=== PATIENT | male | born 1975 | race Caucasian/White ===

== ENCOUNTER 2016-10-10 19:36 | Emergency (ER) | payer OTHER ==
[~2016-10-10] VITALS: Ht 177.8 cm; Wt 118.0 kg
[~2016-10-10 19:36] MED LIST: BND25X PO; TRAM-10 PO
[2016-10-10 19:39] VITALS: TEMP 36.6; Ht 177.8 cm; Wt 118.0 kg
[2016-10-10] MEDS ORDERED: IBUP-103 PO (19:48)
[2016-10-10] MEDS ORDERED: ACET-1256 PO (19:48)
--- NOTE | 2016-10-10 20:18 | DIAGNOSTIC IMAGING REPORT ---
LEFT FOOT MIN 3 VIEWS ROUTINE CLINICAL HISTORY: Left foot pain following fall. COMPARISON: None FINDINGS: Alignment of the tarsometatarsal joints is anatomic. No acute fracture is identified on this exam. Dorsal soft tissue swelling is noted on the lateral projection. IMPRESSION: No acute fracture or dislocation of the left foot identified. Electronically signed by: Joni López M.D. 10/10/2016 8:16 PM Dictated Date/Time: 10/10/2016 8:12 PM
[2016-10-10] MEDS ORDERED: ACET-749 PO (20:31)
[2016-10-10 20:41] VITALS: BP 134/86; PULSE 104; O2SAT 95
[2016-10-10] MEDS ORDERED: TYLENOL #3 HOME PACK PO ONE (20:45)
--- NOTE | 2016-10-13 14:25 | EMERGENCY ROOM VISIT NOTE ---
History First contact with patient: 19:43 Chief Complaint: FOOT PAIN Stated Complaint: POSSIBLE BROKEN LT FOOT History of Present Illness The patient is a 40 year old male who presents to the Emergency Room with complaints of persistent left foot pain, swelling and bruising. The patient reports that he twisted his foot 3 days ago while walking across town from a friend's house. The patient reports that he did have a set of crutches at home. Weightbearing worsens his pain to an 8 out of 10. He denies any pain extending into the ankle or leg. Denies paresthesias or numbness of the left foot or toes. He denies any prior history of left foot injuries. Review of Systems 10 system review was performed and was negative except for pertinent positives and negatives as indicated in history of present illness Past Medical/Surgical History Medical Problems: (1) No chronic past medical history Family History Cancer Diabetes mellitus Heart disease Social History Smoking Status: Never Smoker Alcohol Use: occasionally Marital Status: Housing Status: lives with family Occupation Status: employed Current/Historical Medications Scheduled Acetaminophen (Tylenol), 1,000 MG PO PRN UD Scheduled PRN Acetaminophen/Codeine (Tylenol W/Codeine #3), 1-2 TABS PO q4-6h PRN for Pain Ibuprofen Tab (Advil), 400 MG PO Q6 PRN for Pain Allergies Coded Allergies: No Known Allergies (Unverified , 09/18/16) Physical Exam Vital Signs Date Time Temp Pulse Resp B/P Pulse Ox O2 Delivery O2 Flow Rate FiO2 10/10/16 20:41 104 16 134/86 95 Room Air 10/10/16 19:39 36.6 116 18 174/101 97 Room Air Physical Exam CONSTITUTIONAL: Healthy and well nourished. Alert and oriented X 3 with positive affect. She does not appear in any acute distress. HEENT: Normocephalic, atraumatic. Pupils equal, round and reactive. NECK: Full active range of motion without discomfort. MUSCULOSKELETAL: Examination of the left foot shows significant midfoot edema with dorsal ecchymosis at the webspaces of all toes. The patient has no focal tenderness to palpation over the fifth metatarsal, calcaneus or Achilles tendon. Ankle exam is normal. Pedal pulses are intact. INTEGUMENTARY: No rash or other significant dermatologic conditions noted. NEUROLOGIC: Left foot and toes are sensory intact. Medical Decision & Procedures ER Provider Diagnostic Interpretation: My interpretation of left foot x-rays does not show any acute fractures or dislocations. Radiologist report is as follows: LEFT FOOT MIN 3 VIEWS ROUTINE CLINICAL HISTORY: Left foot pain following fall. COMPARISON: None FINDINGS: Alignment of the tarsometatarsal joints is anatomic. No acute fracture is identified on this exam. Dorsal soft tissue swelling is noted on the lateral projection. IMPRESSION: No acute fracture or dislocation of the left foot identified. Medications Administered Medications (Trade) Dose Ordered Sig/Patricia Route Start Time Stop Time Status Last Admin Dose Admin Acetaminophen/ Codeine Phosphate (TYLENOL W/ CODEINE #3 Home Pack) 1 homepack UD ONCE PO 10/10/16 20:45 10/10/16 20:46 DC 10/10/16 20:42 1 HOMEPACK ED Course Patient history and physical exam were performed. Nurse's notes were reviewed. The patient refused any analgesics while in the emergency department. X-rays of the left foot were normal. The patient was encouraged to follow-up with orthopedics for further reevaluation and management. Ice and elevation for swelling. He does have crutches with him, and was encouraged to continue using them as needed to avoid limping. Ibuprofen and Tylenol as needed for pain. The patient refused any prescription analgesics, was happy with plan of care, and rated his discomfort a 4 out of 10 at the time of discharge. Medical Decision Impression Primary Impression: Strain of left foot Departure Information Prescriptions Acetaminophen/Codeine (Tylenol W/Codeine #3) 300 Mg/30 Mg Tab 1-2 TABS PO q4-6h Y for Pain, #30 TAB For Initial Treatment Prov: Favio Allen PA 10/10/16 Referrals No Doctor, Assigned (PCP) Patient Instructions A Signature Page, My [facility]
== END 2016-10-10 20:45 | disposition home or self-care (01) ==
LOC: C.EDB 19:38 → C.EDD 20:45
DX: M79.672 Pain in left foot (principal); W19.XXXA Unspecified fall, initial encounter

== ENCOUNTER 2016-10-18 18:02 | Emergency (ER) | payer OTHER ==
[~2016-10-18] VITALS: Ht 177.8 cm; Wt 120.0 kg
[~2016-10-18 18:02] MED LIST changes: +ACET-1256 PO; +ACET-749 PO; -BND25X PO; +IBUP-103 PO; -TRAM-10 PO
[2016-10-18 18:05] VITALS: TEMP 36.5; Ht 177.8 cm; Wt 120.0 kg
[2016-10-18] MEDS ORDERED: SODIUM CHLORIDE 0.9% 1000ML 1,000 ML IV STA ×2 (19:23)
--- NOTE | 2016-10-18 19:35 | EMERGENCY ROOM VISIT NOTE ---
History Report prepared by Smith: Milena Bob Under the Supervision of: Dr. Baltazar Rivas M.D. First contact with patient: 19:21 Chief Complaint: SYNCOPE Stated Complaint: BLACKED OUT Nursing Triage Summary: See triage note History of Present Illness The patient is a 40 year old male who presents to the Emergency Room with complaints of an episode of syncope occurring just prior to arrival. The patient states that he was driving when he began to experience abdominal pain, lightheadedness, dizziness, numbness, diaphoresis, and blurred vision. He pulled over and had his friend production truck driver when he then experienced the syncopal episode. He notes that now he feels fatigued and has a headache. 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 A total of 10 systems reviewed and were otherwise negative. Past Medical & Surgical Medical Problems: (1) No chronic past medical history Family History Cancer Diabetes mellitus Heart disease Social History Smoking Status: Former Smoker Alcohol Use: occasionally Marital Status: Housing Status: lives with family Occupation Status: employed Current/Historical Medications No Active Prescriptions or Reported Meds Allergies Coded Allergies: No Known Allergies (Unverified , 10/18/16) Physical Exam Vital Signs Date Time Temp Pulse Resp B/P Pulse Ox O2 Delivery O2 Flow Rate FiO2 10/18/16 21:29 82 16 130/84 95 Room Air 10/18/16 20:19 105 95 Room Air 10/18/16 19:54 90 20 128/84 98 Room Air 91 132/96 85 127/85 10/18/16 18:05 36.5 104 17 131/85 96 Room Air Physical Exam CONSTITUTIONAL: Mild distress. HEENT: No icterus, moist mucous membranes NECK: No meningismus, trachea is midline. CARDIOVASCULAR: Regular rate, normal perfusion RESPIRATORY: Unlabored breathing. Clear to auscultation. GASTROINTESTINAL: Non-tender GENITOURINARY: No flank tenderness MUSCULOSKELETAL: Full range of motion NEUROLOGIC: No acute gross focal deficits. PSYCHIATRIC: Normal affect SKIN: Normal for ethnicity. Medical Decision & Procedures ER Provider Diagnostic Interpretation: X-ray results as stated below per my interpretation and radiologist interpretation. Other radiology results as stated below per my review and radiologist interpretation. CHEST 2 VIEWS ROUTINE CLINICAL HISTORY: weakness, near syncope COMPARISON STUDY: 08/08/2014 FINDINGS: The cardiac and mediastinal contours remain stable. There is no focal pulmonary consolidation. There is no failure. There are no pleural effusions. Slight prominence of the interstitium, likely relates to technical factors.[ IMPRESSION: No active disease in the chest. Electronically signed by: Claudio Velarde M.D. 10/18/2016 8:11 PM Dictated Date/Time: 10/18/2016 8:[address] HEAD WITHOUT CONTRAST (CT) CLINICAL HISTORY: Headache, malaise. COMPARISON STUDY: 07/26/2014 TECHNIQUE: Axial CT of the brain is performed from the vertex to the skull base. IV contrast was not administered for this examination. CT DOSE: 537.48 mGy.cm FINDINGS: No intra or extra-axial mass lesions are visualized. There is no CT evidence of acute cortical infarction. There is no evidence of midline shift. There is no acute hemorrhage. No calvarial fractures are visualized. There is no evidence of pathologic ventricular dilatation. There is mild mucosal thickening within the sphenoid and ethmoid sinuses. There are postsurgical changes involving the right lateral orbital process. There is a tiny left frontal scalp nodule. IMPRESSION: No acute intracranial findings Electronically signed by: Claudio Velarde M.D. 10/18/2016 9:11 PM Dictated Date/Time: 10/18/2016 9:10 PM Laboratory Results 10/18/16 19:35 Red Blood Count 5.06, Mean Corpuscular Volume 88.5, Mean Corpuscular Hemoglobin 30.8, Mean Corpuscular Hemoglobin Concent 34.8, Mean Platelet Volume 9.7, Neutrophils (%) (Auto) 76.2, Lymphocytes (%) (Auto) 14.2, Monocytes (%) (Auto) 8.6, Eosinophils (%) (Auto) 0.5, Basophils (%) (Auto) 0.2, Neutrophils # (Auto) 12.01, Lymphocytes # (Auto) 2.23, Monocytes # (Auto) 1.35, Eosinophils # (Auto) 0.08, Basophils # (Auto) 0.03 10/18/16 19:35 Test 10/18/16 19:35 10/18/16 20:18 White Blood Count 15.75 K/uL (4.8-10.8) Red Blood Count 5.06 M/uL (4.7-6.1) Hemoglobin 15.6 g/dL (14.0-18.0) Hematocrit 44.8 % (42-52) Mean Corpuscular Volume 88.5 fL (80-100) Mean Corpuscular Hemoglobin 30.8 pg (25-34) Mean Corpuscular Hemoglobin Concent 34.8 g/dl (32-36) Platelet Count 262 K/uL (130-400) Mean Platelet Volume 9.7 fL (7.4-10.4) Neutrophils (%) (Auto) 76.2 % Lymphocytes (%) (Auto) 14.2 % Monocytes (%) (Auto) 8.6 % Eosinophils (%) (Auto) 0.5 % Basophils (%) (Auto) 0.2 % Neutrophils # (Auto) 12.01 K/uL (1.4-6.5) Lymphocytes # (Auto) 2.23 K/uL (1.2-3.4) Monocytes # (Auto) 1.35 K/uL (0.11-0.59) Eosinophils # (Auto) 0.08 K/uL (0-0.5) Basophils # (Auto) 0.03 K/uL (0-0.2) RDW Standard Deviation 42.1 fL (36.4-46.3) RDW Coefficient of Variation 13.2 % (11.5-14.5) Immature Granulocyte % (Auto) 0.3 % Immature Granulocyte # (Auto) 0.05 K/uL (0.00-0.02) Anion Gap 9.0 mmol/L (3-11) Est Creatinine Clear Calc Drug Dose 117.1 ml/min Estimated GFR () 97.5 Estimated GFR (Non- 84.1 BUN/Creatinine Ratio 16.5 (10-20) Calcium Level 9.6 mg/dl (8.5-10.1) Troponin I < 0.015 ng/ml (0-0.045) Urine Color DK YELLOW Urine Appearance CLOUDY (CLEAR) Urine pH 5.0 (4.5-7.5) Urine Specific [place] 1.028 (1.000-1.030) Urine Protein 1+ (NEG) Urine Glucose (UA) NEG (NEG) Urine Ketones TRACE (NEG) Urine Occult Blood NEG (NEG) Urine Nitrite NEG (NEG) Urine Bilirubin NEG (NEG) Urine Urobilinogen NEG (NEG) Urine Leukocyte Esterase NEG (NEG) Urine WBC (Auto) 1-5 /hpf (0-5) Urine RBC (Auto) 0-4 /hpf (0-4) Urine Hyaline Casts (Auto) 1-5 /lpf (0-5) Urine Epithelial Cells (Auto) >30 /lpf (0-5) Urine Bacteria (Auto) NEG (NEG) Urine Renal Epithelial Cells 0-5 /lpf (0-5) Urine Pathogenic Casts /lpf (0) Urine Mucus PRESENT (NONE PRSENT) Urine Opiates Screen NEG (NEG) Urine Methadone, Qualitative NEG (NEG) Urine Barbiturates NEG (NEG) Urine Phencyclidine (PCP) Level NEG (NEG) Ur Amphetamine/Methamphetamine NEG (NEG) MDMA (Ecstasy) Screen NEG (NEG) Urine Benzodiazepines Screen NEG (NEG) Urine Cocaine Metabolite NEG (NEG) Urine Marijuana (THC) POS (NEG) Labs reviewed by ED physician. Medications Administered Medications (Trade) Dose Ordered Sig/Patricia Route Start Time Stop Time Status Last Admin Dose Admin Sodium Chloride 1,000 ml @ 0 mls/hr Q0M STAT IV 10/18/16 19:23 10/18/16 19:25 DC 10/18/16 19:42 999 MLS/HR Sodium Chloride (Nss 1000ml) 1,000 ml @ 0 mls/hr Q0M STAT IV 10/18/16 19:23 10/18/16 19:25 DC 10/18/16 20:20 999 MLS/HR Acetaminophen (Tylenol Tab) 1,000 mg NOW STAT PO 10/18/16 20:19 10/18/16 20:20 DC 10/18/16 20:25 1,000 MG ECG Indication: syncope Rate (beats per minute): 90 Rhythm: normal sinus Findings: no ectopy, other (normal axis, normal St segment) ED Course 1928: Past medical records reviewed. The patient was evaluated in room B8. A complete history and physical examination was performed. 1922: Sodium Chloride 1,000 ml @ 0 mls/ hr Wide Open IV, Sodium Chloride 1,000 ml @ 0 mls/hr Wide Open IV. 2019: Tylenol Tab 1,000 mg PO. 2130: Upon reexamination the patient is hemodynamically stable. I discussed results and treatment plan with the patient. He verbalizes agreement and understanding. The patient is ready for discharge. Medical Decision Differential diagnoses include but are not limited to; vasovagal event, infection, hypoglycemia, electrolyte abnormalities, cardiac sources, intracerebral event, toxicologic, neurologic, as well as others were entertained. 40-year-old presented to the emergency room for feeling generally weak prior to arrival as if he were to pass out although he did not. He has otherwise been in his normal state of health without complaints presently feels generally ill. No meningismus and physical exam normal. EKG normal sinus rhythm and normal intervals. ED evaluation notable for moderate leukocytosis in the context of a nontoxic patient who subjectively feels unwell but objectively does not appear severely sick at this time. Results discussed with patient who understands follow the primary doctor return for any worsening worrisome symptoms Impression Primary Impression: Weakness Additional Impression: Near syncope Scribe Attestation The scribe's documentation has been prepared under my direction and personally reviewed by me in its entirety. I confirm that the note above accurately reflects all work, treatment, procedures, and medical decision making performed by me. Departure Information Dispostion Home / Self-Care Prescriptions No Active Prescriptions or Reported Meds Referrals No Doctor, Assigned (PCP) Forms HOME CARE DOCUMENTATION FORM, IMPORTANT VISIT INFORMATION Patient Instructions ED Near Syncope Unkn, ED Viral Syndrome, My [facility] Problem Qualifiers
[2016-10-18 19:47] LABS: BASO % 0.2 %; BASO ABS # 0.03 K/uL (0-0.2); COMPLETE YES; EOS % 0.5 %; HEMATOCRIT 44.8 % (42-52); IG% 0.3 %; LYMPH % 14.2 %; LYMPH ABS # 2.23 K/uL (1.2-3.4); MEAN CELL VOLUME 88.5 fL (80-100); MEAN CORPUSCULAR HEMOGLOBIN 30.8 pg (25-34); MEAN CORPUSCULAR HGB CONC 34.8 g/dl (32-36); MEAN PLATELET VOLUME 9.7 fL (7.4-10.4); MONO % 8.6 %; NEUT % 76.2 %; PLATELET COUNT 262 K/uL (130-400); RED BLOOD COUNT 5.06 M/uL (4.7-6.1); WHITE BLOOD COUNT 15.75 K/uL (4.8-10.8)
[2016-10-18 20:08] LABS: BLOOD UREA NITROGEN 18 mg/dl (7-18); BUN/CREATININE RATIO 16.5 (10-20); CALCIUM 9.6 mg/dl (8.5-10.1); CARBON DIOXIDE 29 mmol/L (21-32); CHLORIDE 103 mmol/L (98-107); GLUCOSE 68 mg/dl (70-99); POTASSIUM 3.7 mmol/L (3.5-5.1); SODIUM 141 mmol/L (136-145)
--- NOTE | 2016-10-18 20:13 | DIAGNOSTIC IMAGING REPORT ---
CHEST 2 VIEWS ROUTINE CLINICAL HISTORY: weakness, near syncope COMPARISON STUDY: 08/08/2014 FINDINGS: The cardiac and mediastinal contours remain stable. There is no focal pulmonary consolidation. There is no failure. There are no pleural effusions. Slight prominence of the interstitium, likely relates to technical factors.[ IMPRESSION: No active disease in the chest. Electronically signed by: Claudio Velarde M.D. 10/18/2016 8:11 PM Dictated Date/Time: 10/18/2016 8:09 PM
[2016-10-18] MEDS ORDERED: ACETAMINOPHEN 500 MG TAB PO STA (20:19)
[2016-10-18 20:47] LABS: URINE APPEARANCE CLOUDY (CLEAR); URINE BILIRUBIN NEG (NEG); URINE COLOR DK YELLOW; URINE EPITHELIAL CELL AUTO >30 /lpf (0-5); URINE NITRITE NEG (NEG); URINE SPECIFIC GRAVITY 1.028 (1.000-1.030); UROBILINOGEN NEG (NEG)
[2016-10-18 20:48] LABS: MANUAL MICROSCOPIC REQUIRED? NO; REVIEW REQ? YES
[2016-10-18 21:01] LABS: URINE MUCUS PRESENT (NONE PRSENT)
[2016-10-18 21:04] LABS: BENZODIAZEPINE, URINE NEG (NEG); COCAINE,URINE NEG (NEG); PHENCYCLIDINE, URINE NEG (NEG)
--- NOTE | 2016-10-18 21:13 | DIAGNOSTIC IMAGING REPORT ---
CT HEAD WITHOUT CONTRAST (CT) CLINICAL HISTORY: Headache, malaise. COMPARISON STUDY: 07/26/2014 TECHNIQUE: Axial CT of the brain is performed from the vertex to the skull base. IV contrast was not administered for this examination. CT DOSE: 537.48 mGy.cm FINDINGS: No intra or extra-axial mass lesions are visualized. There is no CT evidence of acute cortical infarction. There is no evidence of midline shift. There is no acute hemorrhage. No calvarial fractures are visualized. There is no evidence of pathologic ventricular dilatation. There is mild mucosal thickening within the sphenoid and ethmoid sinuses. There are postsurgical changes involving the right lateral orbital process. There is a tiny left frontal scalp nodule. IMPRESSION: No acute intracranial findings Electronically signed by: Claudio Velarde M.D. 10/18/2016 9:11 PM Dictated Date/Time: 10/18/2016 9:10 PM
[2016-10-18 21:29] VITALS: BP 130/84; PULSE 82; O2SAT 95
== END 2016-10-18 21:41 | disposition home or self-care (01) ==
LOC: C.EDB 18:02
DX: R55 Syncope and collapse (principal); R10.9 Unspecified abdominal pain; R61 Generalized hyperhidrosis; R51 Headache; Z87.891 Personal history of nicotine dependence; H53.8 Other visual disturbances

== ENCOUNTER 2017-03-09 15:25 | Emergency (ER) | payer OTHER ==
[~2017-03-09] VITALS: Ht 175.3 cm; Wt 111.1 kg
[2017-03-09 15:28] VITALS: TEMP 36.7; Ht 175.3 cm; Wt 111.1 kg
[2017-03-09] MEDS ORDERED: SODIUM CHLORIDE 0.9% 1000ML 1,000 ML IV STA (16:17)
[2017-03-09] MEDS ORDERED: KETOROLAC TROMETHAMINE 30 MG/ML VIAL IV STA (16:25)
[2017-03-09 16:37] LABS: BASO % 0.6 %; BASO ABS # 0.03 K/uL (0-0.2); COMPLETE YES; EOS % 0.6 %; HEMATOCRIT 43.4 % (42-52); IG% 0.4 %; LYMPH % 18.8 %; MEAN CORPUSCULAR HEMOGLOBIN 31.1 pg (25-34); MEAN CORPUSCULAR HGB CONC 34.6 g/dl (32-36); MEAN PLATELET VOLUME 9.5 fL (7.4-10.4); MONO % 15.3 %; NEUT % 64.3 %; PLATELET COUNT 243 K/uL (130-400); RED BLOOD COUNT 4.82 M/uL (4.7-6.1); WHITE BLOOD COUNT 5.31 K/uL (4.8-10.8)
[2017-03-09] MEDS ORDERED: OPTIRAY 320 IV PRN (16:45)
[2017-03-09 16:54] LABS: BUN/CREATININE RATIO 9.8 (10-20); CALCIUM 8.5 mg/dl (8.5-10.1); CREATININE 0.89 mg/dl (0.60-1.40); POTASSIUM 3.9 mmol/L (3.5-5.1)
[2017-03-09 16:57] LABS: C-REACTIVE PROTEIN 3.67 mg/dl (0-0.29)
[2017-03-09 17:09] LABS: URINE APPEARANCE CLEAR (CLEAR); URINE BILIRUBIN NEG (NEG); URINE COLOR YELLOW; URINE EPITHELIAL CELL AUTO 0-5 /lpf (0-5); URINE NITRITE NEG (NEG); URINE PH 5.5 (4.5-7.5); UROBILINOGEN NEG (NEG); ZZUR CULT IF INDIC CLEAN CATCH NO
[2017-03-09 17:15] LABS: MANUAL MICROSCOPIC REQUIRED? NO; REVIEW REQ? NO
[2017-03-09 17:37] LABS: LYME DISEASE AB IGG NEG (NEG); LYME DISEASE AB IGM NEG (NEG)
--- NOTE | 2017-03-09 18:18 | DIAGNOSTIC IMAGING REPORT ---
ABDOMEN AND PELVIS CT WITH IV CONTRAST CT DOSE: 1076.55 mGy.cm HISTORY: Pain LLQ abd pain TECHNIQUE: Multiaxial CT images of the abdomen and pelvis were performed following the use of intravenous contrast. COMPARISON STUDY: None FINDINGS: Minimal dependent basilar atelectasis. The liver spleen and pancreas enhance uniformly. Kidneys are negative for hydronephrosis. There is a 1 cm cortical cyst lower pole right kidney. Bowel pattern is nonobstructive. Findings of scattered colonic diverticulosis. There is no evidence for acute diverticulitis. The appendix is normal. Bladder is midline. There is no free fluid within the pelvic cul-de-sac. IMPRESSION: Mild chronic colonic diverticulosis. 2. No evidence for acute diverticulitis. 3. Otherwise negative study Electronically signed by: Chriss Gaming M.D. 03/09/2017 6:17 PM Dictated Date/Time: 03/09/2017 6:13 PM
[2017-03-09] MEDS ORDERED: DOXYCYCLINE HYCLATE 100 MG CAP PO ONE (19:00)
[2017-03-09 19:08] VITALS: BP 140/82; PULSE 86; O2SAT 96
[2017-03-09] MEDS ORDERED: DXY100 PO (19:18)
--- NOTE | 2017-03-10 00:43 | EMERGENCY ROOM VISIT NOTE ---
History Report prepared by Smith: Dieter Menendez Under the Supervision of: Dr. Chung Dunn M.D. First contact with patient: 16:14 Chief Complaint: FLU LIKE SX Stated Complaint: BODY ACHES, FLU LIKE SX, MUSCLE PAIN, POSS. LYMES History of Present Illness The patient is a 41 year old male who presents to the Emergency Room with complaints of constant muscle and joint "soreness" beginning yesterday. He is concerned that he may have Lyme disease, though he has not noticed any tick bites or rashes recently. He notes that he lives right [place] to the [facility]. The patient denies any known sick contacts. He also complains of headaches, weakness , and fatigue. Pt denies LOC, fevers, chills, diaphoresis, visual changes, neck pain, chest pain, breathing difficulties, nausea, vomiting, abdominal pain, back pain, melena, hematochezia, urinary symptoms, numbness, lymphadenopathy, rash, or other complaints. Source of History: patient Onset: Yesterday Position: other (muscle and joint) Quality: other ("soreness") Timing: constant Associated Symptoms: + headache, + fatigue, No sorethroat, No vomiting, No abdominal pain, No urinary symptoms, No weakness Review of Systems See HPI for pertinent positives and negatives. A total of ten systems were reviewed and were otherwise negative. Past Medical & Surgical Medical Problems: (1) No chronic past medical history Family History Cancer Diabetes mellitus Heart disease Social History Smoking Status: Former Smoker Alcohol Use: occasionally Marital Status: Housing Status: lives with family Occupation Status: employed Current/Historical Medications Scheduled Doxycycline Hyclate (Doxycycline Hyclate), 100 MG PO BID Doxycycline Hyclate (Doxycycline Hyclate), 100 MG PO BID Allergies Coded Allergies: No Known Allergies (Unverified , 10/18/16) Physical Exam Vital Signs Date Time Temp Pulse Resp B/P (MAP) Pulse Ox O2 Delivery O2 Flow Rate FiO2 03/09/17 19:08 86 18 140/82 96 Room Air 03/09/17 18:13 86 16 139/76 95 Room Air 03/09/17 17:00 93 03/09/17 16:57 92 21 169/100 95 Room Air 03/09/17 15:28 36.7 112 18 139/91 96 Room Air Physical Exam GENERAL: Awake, alert, mildly ill appearing, no distress HEAD: Normocephalic, atraumatic. No edema. EYES: Normal conjunctiva. Sclera non-icteric. EARS: Right TM normal. Left TM normal. NOSE: Mild congestion. OROPHARYNX: Lips, tongue, and mucosa unremarkable. No erythema or exudate. NECK: Supple. No nuchal rigidity. FROM. No adenopathy. Negative jolt accentuation test. RESPIRATORY: CTA bilaterally. No wheezes rales or rhonchi. CARDIAC: Borderline tachycardic rate, normal rhythm. ABDOMEN: Soft, non distended. LLQ tenderness to palpation. NEURO: Normal sensorium. SKIN: No rash or jaundice noted Medical Decision & Procedures ER Provider Diagnostic Interpretation: CT: Radiology results as stated below per my review and radiologist interpretation ABDOMEN AND PELVIS CT WITH IV CONTRAST FINDINGS: Minimal dependent basilar atelectasis. The liver spleen and pancreas enhance uniformly. Kidneys are negative for hydronephrosis. There is a 1 cm cortical cyst lower pole right kidney. Bowel pattern is nonobstructive. Findings of scattered colonic diverticulosis. There is no evidence for acute diverticulitis. The appendix is normal. Bladder is midline. There is no free fluid within the pelvic cul-de-sac. IMPRESSION: Mild chronic colonic diverticulosis. 2. No evidence for acute diverticulitis. 3. Otherwise negative study Electronically signed by: Chriss Gaming M.D. Laboratory Results 03/09/17 16:25 Red Blood Count 4.82, Mean Corpuscular Volume 90.0, Mean Corpuscular Hemoglobin 31.1, Mean Corpuscular Hemoglobin Concent 34.6, Mean Platelet Volume 9.5, Neutrophils (%) (Auto) 64.3, Lymphocytes (%) (Auto) 18.8, Monocytes (%) (Auto) 15.3, Eosinophils (%) (Auto) 0.6, Basophils (%) (Auto) 0.6, Neutrophils # (Auto ) 3.42, Lymphocytes # (Auto) 1.00, Monocytes # (Auto) 0.81, Eosinophils # (Auto ) 0.03, Basophils # (Auto) 0.03 03/09/17 16:25 Test 03/09/17 16:25 03/09/17 16:57 White Blood Count 5.31 K/uL (4.8-10.8) Red Blood Count 4.82 M/uL (4.7-6.1) Hemoglobin 15.0 g/dL (14.0-18.0) Hematocrit 43.4 % (42-52) Mean Corpuscular Volume 90.0 fL (80-100) Mean Corpuscular Hemoglobin 31.1 pg (25-34) Mean Corpuscular Hemoglobin Concent 34.6 g/dl (32-36) Platelet Count 243 K/uL (130-400) Mean Platelet Volume 9.5 fL (7.4-10.4) Neutrophils (%) (Auto) 64.3 % Lymphocytes (%) (Auto) 18.8 % Monocytes (%) (Auto) 15.3 % Eosinophils (%) (Auto) 0.6 % Basophils (%) (Auto) 0.6 % Neutrophils # (Auto) 3.42 K/uL (1.4-6.5) Lymphocytes # (Auto) 1.00 K/uL (1.2-3.4) Monocytes # (Auto) 0.81 K/uL (0.11-0.59) Eosinophils # (Auto) 0.03 K/uL (0-0.5) Basophils # (Auto) 0.03 K/uL (0-0.2) RDW Standard Deviation 45.3 fL (36.4-46.3) RDW Coefficient of Variation 13.7 % (11.5-14.5) Immature Granulocyte % (Auto) 0.4 % Immature Granulocyte # (Auto) 0.02 K/uL (0.00-0.02) Erythrocyte Sedimentation Rate 20 mm/hr (0-14) Anion Gap 7.0 mmol/L (3-11) Est Creatinine Clear Calc Drug Dose 135.6 ml/min Estimated GFR () 124.0 Estimated GFR (Non- 107.0 BUN/Creatinine Ratio 9.8 (10-20) Calcium Level 8.5 mg/dl (8.5-10.1) Total Bilirubin 0.6 mg/dl (0.2-1) Direct Bilirubin 0.1 mg/dl (0-0.2) Aspartate Amino Transf (AST/SGOT) 18 U/L (15-37) Alanine Aminotransferase (ALT/SGPT) 35 U/L (12-78) Alkaline Phosphatase 61 U/L (45-117) C-Reactive Protein 3.67 mg/dl (0-0.29) Total Protein 7.4 gm/dl (6.4-8.2) Albumin 3.7 gm/dl (3.4-5.0) Lipase 70 U/L (73-393) Lyme Disease IgG Antibody NEG (NEG) Urine Color YELLOW Urine Appearance CLEAR (CLEAR) Urine pH 5.5 (4.5-7.5) Urine Specific [place] 1.020 (1.000-1.030) Urine Protein NEG (NEG) Urine Glucose (UA) NEG (NEG) Urine Ketones NEG (NEG) Urine Occult Blood TRACE (NEG) Urine Nitrite NEG (NEG) Urine Bilirubin NEG (NEG) Urine Urobilinogen NEG (NEG) Urine Leukocyte Esterase NEG (NEG) Urine WBC (Auto) 1-5 /hpf (0-5) Urine RBC (Auto) 0-4 /hpf (0-4) Urine Hyaline Casts (Auto) 0 /lpf (0-5) Urine Epithelial Cells (Auto) 0-5 /lpf (0-5) Urine Bacteria (Auto) NEG (NEG) Laboratory results reviewed by me Medications Administered Medications (Trade) Dose Ordered Sig/Patricia Route Start Time Stop Time Status Last Admin Dose Admin Sodium Chloride 1,000 ml @ 999 mls/hr Q1H1M STAT IV 03/09/17 16:17 03/09/17 17:17 DC 03/09/17 16:57 999 MLS/HR Ketorolac Tromethamine (Toradol Inj) 30 mg NOW STAT IV 03/09/17 16:25 03/09/17 16:27 DC 03/09/17 16:57 30 MG Doxycycline Hyclate (Vibramycin Cap) 100 mg ONE ONCE PO 03/09/17 19:00 03/09/17 19:01 DC 03/09/17 19:08 100 MG ED Course 1617: Ordered Sodium Chloride 1000 ml @ 999 mls/hr IV. 1623: The patient was evaluated in room B9. A complete history and physical exam was performed. 1625: Ordered Toradol Inj 30 mg IV. 0: Ordered Vibramycin Cap 100 mg PO. 1919: I reevaluated the patient. We discussed his case at length. Discussed results and discharge instructions: he verbalized understanding and agreement. The patient is ready for discharge. Medical Decision Triage Nursing notes reviewed. The patient's presentation and history were concerning for flu like symptoms. Physical examination revealed no meningeal findings. LLQ tenderness noted. Etiologies such as viral syndrome, lyme disease, diverticulitis, pneumonia, urinary tract infection, sepsis, bacteremia, meningitis, as well as others were entertained. Medication Reconciliation: I attest that I have personally reviewed the patient' s current medication list Blood pressure screening: Patient was found to have an elevated blood pressure and was referred to their primary doctor for recheck and further treatment. The patient was hydrated and given toradol. He underwent labs and imaging. The patient was expressing flulike symptoms and had abdominal pain on examination. The patient had no meningeal findings. The patient had an unremarkable CBC, chemistry panel and urinalysis. ESR was borderline elevated CRP was elevated. Lyme testing was performed but the Lyme titer was negative. The patient noted that he has high risk for Lyme disease. The patient underwent CT imaging of the abdomen and pelvis and this showed diverticulosis but no evidence of diverticulitis. Given the patient's myalgias and arthralgias coupled with his high risk for Lyme I did send a Western blot. I discussed initiation of treatment based upon his symptoms and timing and the patient was in agreement. He will be started on a 7 days course of doxycycline which should give us time for the Western blot to be performed. We will call back to the emergency Department at the end of the week for results. If his Western blot is negative then he will stop the antibiotic. If his Western blot is positive he will fill a second prescription for the additional 14 days. The patient worsens in any way he will come back. Blood pressure was elevated. The patient does not have primary care but was referred to the [facility] clinic. By the evaluation outlined above other emergent etiologies such as those listed in the differential, as well as others, were deemed relatively unlikely. The patient was educated about the findings as listed above. All questions were answered and the patient was pleased with the treatment. Return instructions were outlined and the patient was discharged in stable condition. The patient was referred to the [facility] for follow-up for a recheck of the current condition. Impression Primary Impression: Flu-like symptoms Additional Impressions: Lower abdominal pain Arthralgia Scribe Attestation The scribe's documentation has been prepared under my direction and personally reviewed by me in its entirety. I confirm that the note above accurately reflects all work, treatment, procedures, and medical decision making performed by me. Departure Information Dispostion Home / Self-Care Prescriptions Doxycycline Hyclate (Doxycycline Hyclate) 100 Mg Cap 100 MG PO BID for 14 Days, #28 CAP Prov: Chung Dunn MD 03/09/17 Doxycycline Hyclate (Doxycycline Hyclate) 100 Mg Cap 100 MG PO BID for 7 Days, #14 CAP Prov: Chung Dunn MD 03/09/17 Referrals No Doctor, Assigned (PCP) Forms HOME CARE DOCUMENTATION FORM, IMPORTANT VISIT INFORMATION Patient Instructions My [facility] Additional Instructions Start the prescription for doxycycline as instructed below. You were given a prescription for 7 days to start. A Lyme confirmation is pending. If the confirmation is positive you will need the second 14 days of doxycycline. Call back to the emergency department on Thursday of this week at [phone] for results. Doxycycline 100mg: Take one pill twice daily. Take with food, but avoid dairy. Avoid prolonged sun exposure since this medication makes you temporarily more susceptible to sunburns. All antibiotics can cause diarrhea. If this occurs and you feel worse or it does not resolve in 1-2 days follow up with your doctor or return to the Emergency Department as this could be signs of serious underlying problems. Any medication can cause an allergic reaction, stop the pills immediately and return to the ER for rash, hives, breathing difficulties, or swelling. Acetaminophen(Tylenol) may be used for fever or pain. Use 1000mg every six hours as needed. Avoid using more than 4000mg in a 24 hour period. AND/OR Ibuprofen(Motrin, Advil) may be used for fever or pain. Use 600mg every six hours as needed. Take with food. Avoid using more than 2400mg in a 24 hour period. Do not use 2400mg per day for more than three consecutive days without physician direction. Prolonged inappropriate use can lead to stomach upset or ulcers. Controlling your fever with Tylenol and Ibuprofen as above will make you feel better. Rest and drink plenty of fluids. Avoid strenuous activity until your symptoms resolve and your breathing returns to normal. Return to the ER for chest pain, difficulty breathing, persistent fevers, vomiting, worsening of your condition, or as needed. Call [phone] to follow-up with the [facility]. Tell them you were in the ER and referred to establish primary care. Recheck of blood pressure is also necessary. Problem Qualifiers
[2017-03-12 09:06] LABS: 18KDIGG BAND NONREACTIVE (NONREACTIVE); 23KDIGG BAND NONREACTIVE (NONREACTIVE); 23KDIGM BAND NONREACTIVE (NONREACTIVE); 28KDIGG BAND NONREACTIVE (NONREACTIVE); 30KDIGG BAND NONREACTIVE (NONREACTIVE); 39KDIGG BAND NONREACTIVE (NONREACTIVE); 39KDIGM BAND NONREACTIVE (NONREACTIVE); 41KDIGG BAND NONREACTIVE (NONREACTIVE); 41KDIGM BAND REACTIVE (NONREACTIVE); 45KDIGG BAND NONREACTIVE (NONREACTIVE); 58KDIGG BAND NONREACTIVE (NONREACTIVE); 66KDIGG BAND REACTIVE (NONREACTIVE); 93KDIGG BAND NONREACTIVE (NONREACTIVE)
== END 2017-03-09 19:29 | disposition home or self-care (01) ==
LOC: C.EDB 15:26
DX: J11.1 Influenza due to unidentified influenza virus with other respiratory manifestations (principal); R10.30 Lower abdominal pain, unspecified; M25.50 Pain in unspecified joint; Z87.891 Personal history of nicotine dependence

== ENCOUNTER → 2017-11-24 | Outpatient (CLI) | payer OTHER ==
[~2017-11-24] MED LIST changes: -ACET-1256 PO; -ACET-749 PO; +DXY100 PO; -IBUP-103 PO
== END | disposition home or self-care (01) ==
LOC: C.LAB 23:56
DX: Z02.83 Encounter for blood-alcohol and blood-drug test (principal)

== ENCOUNTER 2017-12-16 15:50 | Emergency (ER) | payer OTHER ==
[~2017-12-16] VITALS: Ht 175.3 cm; Wt 115.8 kg
[2017-12-16 15:54] VITALS: BP 144/84; PULSE 82; TEMP 36.7; O2SAT 97; Ht 175.3 cm; Wt 115.8 kg
[2017-12-16] MEDS ORDERED: PENI-82 PO (16:16)
--- NOTE | 2017-12-16 16:17 | EMERGENCY ROOM VISIT NOTE ---
ED Visit Note First contact with patient: 15:59 CHIEF COMPLAINT: Toothache HISTORY OF PRESENT ILLNESS: This 42-year-old male patient presented to the emergency department, ambulatory, with a progressive, intermittent toothache for past 4 years. The patient states he chipped his left upper tooth (#11) several years ago and has never had the tooth taken care of. The patient states the pain most recently began worsening approximately 3 days ago. The pain is now steady and severe and radiates to the face. The patient does not have a dentist appointment set up because he does not like going to the dentist. They rate their pain a 3/10 and the ibuprofen and Tylenol they have been taking has not relieved the pain. Denies facial swelling or fever, but does have pain radiating into the face and chills. He states he called off work today due to the increased pain, and states he did not feel like dealing with the pain while working. The patient denies any discharge from the mouth. REVIEW OF SYSTEMS: A 6 system review of systems was completed with positives and pertinent negatives listed in the HPI. ALLERGIES: None MEDICATIONS: None PMH: None SOCIAL HISTORY: The patient lives locally with family. He denies drug use. He admits to alcohol and chewing tobacco use. PHYSICAL EXAM: Vitals are noted on the nurse's note and reviewed by myself. Vital signs stable. Temperature 36.7C orally. GENERAL: This is a 42-year-old white male, in no acute distress, nondiaphoretic, well-developed well- nourished. Mouth: The #11 tooth is broken off, but the remaining root of the tooth which is visible is very carious and the gum is swollen and tender around it, without any discharge or signs of an abscess. Many of the patient's other remaining teeth are extremely carious. the remainder of the pharynx and tonsils are without erythema, edema, or exudate. The airway is patent. There is no facial swelling, cervical or submandibular lymphadenopathy. The patient appears uncomfortable and in pain. The patient has overall very poor dental hygiene. EARS: External auditory canals clear, tympanic membranes pearly oconnor without erythema or effusion bilaterally. ED COURSE: The patient was seen and evaluated as above. His symptoms are consistent with dental pain and infection which he has experienced in the past. The patient fractured his tooth approximately 4 years ago, and has been seen several times in the emergency department for the same injury. He has been treated with antibiotics, per my review of past EMR. The patient will be started on penicillin, and I did have a long discussion with him regarding the importance of proper dental follow-up, as the emergency department is not capable of handling chronic dental infections or concerns. The patient verbalizes understanding. I advised him that I would not be giving him narcotic pain medication, as this has been a chronic problem for him. The patient is agreeable. Discharge instructions reviewed, the patient was discharged home in good condition. I attest that I have personally reviewed the patient's current medication list. Patient was found to have normal blood pressure on screening and does not require follow-up. Differential diagnosis includes odontalgia, periapical abscess, sinusitis, upper respiratory infection, otitis media, otitis externa, Ludewig's angina, tooth impaction, dental fracture, malignancy, and others DIAGNOSIS: Odontalgia Problem List Medical Problems: (1) No chronic past medical history Status: Chronic Current/Historical Medications Scheduled Doxycycline Hyclate (Doxycycline Hyclate), 100 MG PO BID Doxycycline Hyclate (Doxycycline Hyclate), 100 MG PO BID Penicillin V Potassium (Veetids), 500 MG PO QID Allergies Coded Allergies: No Known Allergies (Unverified , 10/18/16) Vital Signs Date Time Temp Pulse Resp B/P (MAP) Pulse Ox O2 Delivery O2 Flow Rate FiO2 12/16/17 15:54 36.7 82 18 144/84 97 Room Air Departure Information Impression Primary Impression: Odontalgia Dispostion Home / Self-Care Condition GOOD Prescriptions Penicillin V Potassium (Veetids) 500 Mg Tab 500 MG PO QID for 10 Days, #40 TAB Prov: Yvonne Luis PA-C 12/16/17 Referrals No Doctor, Assigned (PCP) Chung Izquierdo D.M.D Patient Instructions ED Abscess Dental, My [facility] Additional Instructions You have been treated in the Emergency Department for Dental Pain. You were prescribed Pen-Vee K to be taken 4 times daily 10 days. This is an antibiotic. All antibiotics have the potential to cause diarrhea. Stop this medication and contact a medical provider if you were to develop any significant adverse side effects including: wheezing, shortness of breath, passing out, vomiting, or a diffuse rash. Always take antibiotics as directed and COMPLETE the ENTIRE course regardless of the improvement of your symptoms. For pain control, you can use the following [id number] medicines (if >12 yo): Ibuprofen(Motrin, Advil) may be used for fever or pain. Use 600mg every six hours as needed. Take with food. Avoid using more than 2400mg in a 24 hour period. Do not use 2400mg per day for more than three consecutive days without physician direction. Prolonged inappropriate use can lead to stomach upset or ulcers. (AND/OR) Acetaminophen(Tylenol) may be used for fever or pain. Use 1000mg every six hours as needed. Avoid using more than 3000mg in a 24 hour period. Refrain from smoking cigarettes or using chewing tobacco until you have been evaluated by your dentist. Keeping beverages lukewarm and consuming soft foods can decrease your pain. Warm compresses over the affected area may offer some relief. You MUST seek evaluation of your dental pain by a dentist following your visit to the Emergency Department. The Emergency Department is not capable of treating dental issues long-term. You should call your dentist as soon as possible to make an appointment for evaluation of your dental pain. Return to the emergency department if you develop the following symptoms despite treatment course outlined above: fever, intractable pain, increased redness, swelling, or purulent discharge.
== END 2017-12-16 16:23 | disposition home or self-care (01) ==
LOC: C.EDB 15:51 → C.EDD 16:23
DX: K08.89 Other specified disorders of teeth and supporting structures (principal)